=== PATIENT | male | born 2000 | race Two or more races ===

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

== ENCOUNTER 2020-08-22 01:06 | Emergency (ER) | payer SELFPAY ==
[~2020-08-22] VITALS: Ht 172.7 cm; Wt 88.5 kg
[2020-08-22 05:21] VITALS: BP 130/94
== END 2020-08-22 05:35 | disposition home or self-care (01) ==
LOC: ER 01:10
DX: S61.213A Laceration without foreign body of left middle finger without damage to nail, initial encounter (principal); W26.8XXA Contact with other sharp object(s), not elsewhere classified, initial encounter; Y93.89 Activity, other specified; Y92.89 Other specified places as the place of occurrence of the external cause; Y99.8 Other external cause status
CPT/HCPCS: 12001; 29130; 73130